=== PATIENT | male | born 1995 | race Caucasian/White ===

== ENCOUNTER 2017-09-10 20:48 | Emergency (ER) | payer SELFPAY ==
[2017-09-10 20:56] VITALS: BMI 29.0
[2017-09-10 22:58] LABS: BASOPHILS % (AUTO) 0.5 % (0.2-1.0); EOSINOPHILS # (AUTO) 0.1 x10^3/uL (0.0-0.2); EOSINOPHILS % (AUTO) 1.3 % (0.9-2.9); HEMATOCRIT 39.1 % (42.0-54.0); HEMOGLOBIN 13.4 g/dL (13.5-18.0); LYMPHOCYTES # (AUTO) 2.2 X10^3/uL (1.3-2.9); LYMPHOCYTES % (AUTO) 32.8 % (21.0-51.0); MEAN CORPUSCULAR HEMOGLOBIN 30.1 pg (27.0-34.0); MEAN CORPUSCULAR HGB CONC 34.3 g/dL (33.0-35.0); MEAN CORPUSCULAR VOLUME 87.9 fL (80.0-100.0); MEAN PLATELET VOLUME 10.5 fL (7.4-11.0); MONOCYTES # (AUTO) 0.4 x10^3/uL (0.3-0.8); MONOCYTES % (AUTO) 5.9 % (0.0-13.0); NEUTROPHILS # (AUTO) 3.9 x10^3/uL (2.2-4.8); NEUTROPHILS % (AUTO) 59.5 % (42.0-75.0); PLATELET COUNT 153 X10^3/uL (150.0-450.0); RED BLOOD COUNT 4.45 X10^6/uL (4.7-6.0); RED CELL DISTRIBUTION WIDTH 13.4 % (11.6-16.5); WHITE BLOOD COUNT 6.6 X10^3/uL (3.6-10.0)
[2017-09-10 23:13] LABS: BLOOD UREA NITROGEN 9 mg/dL (7-18); CALCIUM 8.6 mg/dL (8.5-10.1); CARBON DIOXIDE 30.9 mmol/L (21-32); CHLORIDE 105 mmol/L (98-107); CREATININE 0.86 mg/dL (0.70-1.30); SODIUM 143 mmol/L (136-145); TROPONIN I < 0.02 ng/mL (0-1.5); eGFR BLACK RACES > 60 (>60); eGFR NON BLACK RACES > 60 (>60)
[2017-09-10 23:18] LABS: ALANINE AMINOTRANSFERASE 26 Units/L (12-78); ALBUMIN 4.1 g/dL (3.4-5.0); ALKALINE PHOSPHATASE 81 Units/L (46-116); ASPARTATE AMINO TRANSFERASE 18 Units/L (15-37); CKMB % 0.7 % (<4); CREATINE KINASE 142 Units/L (39-308); CREATINE KINASE MB < 1.0 ng/mL (0-4.0); TOTAL PROTEIN 7.7 g/dL (6.4-8.2)
--- NOTE | 2017-09-10 23:46 | DR.GENAD ---
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 There is no cooling vents other than what air is circulating. He denies any history of heart disease; no history of trauma or lung disease. Chief Complaint:: PASSING OUT - Source History Provided: Patient - Mode of Arrival Mode of Arrival: Ambulatory - Timing Onset of Chief Complaint: 09/06/17 PMH - PMH Past Medical History: No Past Medical History: Anxiety Past Surgical History: No Surgical History: Tonsillectomy - Family History History of Family Medical Conditions: Yes Family Medical History: Diabetes Mellitus, [place], Coronary Artery Disease, Hypertension - Social History Does patient currently use any type of tobacco product: Yes Have you used tobacco products in the last 12 months: Yes Type of Tobacco Use: Cigarettes Does any household member use tobacco: No Alcohol Use: None Do you use any recreational Drugs:: No Lives With: Family Lives Where: Home - infectious screening In the last 2 months have you had wt loss of >10#?: NO Have you had fever, night sweats or hemotysis?: No Have you traveled outside the country in the last 6 months?: No Isolation: Standard ROS - Review of Systems Eyes: No Symptoms Reported ENTM: No Symptoms Reported Respiratoy: No Symptoms Reported Cardiovascular: No Symptoms Reported Gastrointestinal/Abdominal: No Symptoms Reported Genitourinary: No Symptoms Reported Neurological: No Symptoms Reported Musculoskeletal: No Symptoms Reported Integumentary: No Symptoms Reported Hematologic/Lymphatic: No Symptoms Reported Endocrine: No Symptoms Reported Psychiatric: No Symptoms Reported All Other Systems: Reviewed and Negative PE - Vital Signs Vitals: Temperature 98.4 F Pulse Rate 103 Respiratory Rate 16 Blood Pressure 142/68 O2 Sat by Pulse Oximetry 100 - General Limitations: No Limitations General Appearance: Alert, In No Apparent Distress - Head Head Exam: Normal Inspection, Atraumatic - Eyes Eye exam: Normal Appearance, PERRL, EOMI - ENT ENT Exam: Normal Exam, Normal Oropharynx External Ear Exam: Normal External Inspection TM/Canal Exam: Bilateral Normal Nose Exam: Normal Nose Exam Mouth Exam: Normal Inspection Throat Exam: Normal Inspection - Neck Neck Exam: Normal Inspection, Full ROM - Chest Chest Inspection: Normal Inspection, Symmetric Chest Wall Rise - Respiratory Respiratory Exam: Normal Lung Sounds Bilat Respiratory Exam: Bilateral Clear to Auscultation - Cardiovascular Cardiovascular Exam: Regular Rate, Normal Rhythm - Abdominal Exam Abdominal Exam: Normal Inspection, Normal Bowel Sounds Abdominal Tenderness: negative: RUQ, RLQ, LUQ, LLQ, Epigastrium, Suprapubic, Diffuse, Mild, Moderate, Severe, Other - Extremities Extremities Exam: Normal Inspection, Full ROM - Back Back Exam: Normal Inspection, Full ROM - Neurologic Neurological Exam: Alert, Oriented X3, CN II-XII Intact - Psychiatric Psychiatric Exam: Normal Affect, Normal Mood - Skin Skin Exam: Warm, Dry, Intact Course - Reevaluation 1st: Improved ROR - Labs Reviewed Result Diagrams: 09/10/17 22:48 09/10/17 22:48 Laboratory: WBC 6.6 X10^3/uL (3.6-10.0) 09/10/17 22:48 RBC 4.45 X10^6/uL (4.7-6.0) L 09/10/17 22:48 Hgb 13.4 g/dL (13.5-18.0) L 09/10/17 22:48 Hct 39.1 % (42.0-54.0) L 09/10/17 22:48 MCV 87.9 fL (80.0-100.0) 09/10/17 22:48 MCH 30.1 pg (27.0-34.0) 09/10/17 22:48 MCHC 34.3 g/dL (33.0-35.0) 09/10/17 22:48 RDW 13.4 % (11.6-16.5) 09/10/17 22:48 Plt Count 153 X10^3/uL (150.0-450.0) 09/10/17 22:48 MPV 10.5 fL (7.4-11.0) 09/10/17 22:48 Neut % (Auto) 59.5 % (42.0-75.0) 09/10/17 22:48 Lymph % (Auto) 32.8 % (21.0-51.0) 09/10/17 22:48 [place] % (Auto) 5.9 % (0.0-13.0) 09/10/17 22:48 Eos % (Auto) 1.3 % (0.9-2.9) 09/10/17 22:48 Baso % (Auto) 0.5 % (0.2-1.0) 09/10/17 22:48 Neut # (Auto) 3.9 x10^3/uL (2.2-4.8) 09/10/17 22:48 Lymph # (Auto) 2.2 X10^3/uL (1.3-2.9) 09/10/17 22:48 [place] # (Auto) 0.4 x10^3/uL (0.3-0.8) 09/10/17 22:48 Eos # (Auto) 0.1 x10^3/uL (0.0-0.2) 09/10/17 22:48 Baso # (Auto) 0.0 X10^3/uL (0.0-0.1) 09/10/17 22:48 Absolute Nucleated RBC 0.0 /100WBC 09/10/17 22:48 Sodium 143 mmol/L (136-145) 09/10/17 22:48 Corrected Sodium TNP 09/10/17 22:48 Potassium 3.8 mmol/L (3.5-5.1) 09/10/17 22:48 Chloride 105 mmol/L (98-107) 09/10/17 22:48 Carbon Dioxide 30.9 mmol/L (21-32) 09/10/17 22:48 BUN 9 mg/dL (7-18) 09/10/17 22:48 Creatinine 0.86 mg/dL (0.70-1.30) 09/10/17 22:48 Est GFR (MDRD) Af Amer > 60 (>60) 09/10/17 22:48 Est GFR (MDRD) Non-Af > 60 (>60) 09/10/17 22:48 Glucose 95 mg/dL (65-99) 09/10/17 22:48 Calcium 8.6 mg/dL (8.5-10.1) 09/10/17 22:48 Corrected Calcium TNP 09/10/17 22:48 Total Bilirubin 0.40 mg/dL (0.2-1.0) 09/10/17 22:48 AST 18 Units/L (15-37) 09/10/17 22:48 ALT 26 Units/L (12-78) 09/10/17 22:48 Alkaline Phosphatase 81 Units/L (46-116) 09/10/17 22:48 Creatine Kinase 142 Units/L (39-308) 09/10/17 22:48 CK-MB (CK-2) < 1.0 ng/mL (0-4.0) 09/10/17 22:48 CK/CKMB % Calc 0.7 % (<4) 09/10/17 22:48 Troponin I < 0.02 ng/mL (0-1.5) 09/10/17 22:48 Total Protein 7.7 g/dL (6.4-8.2) 09/10/17 22:48 Albumin 4.1 g/dL (3.4-5.0) 09/10/17 22:48 Globulin 3.6 g/dL (2.5-4.5) 09/10/17 22:48 Albumin/Globulin Ratio 1.1 Ratio (1.1-2.1) 09/10/17 22:48 - XRAY XRAY Interpreted by: Radiologist (Chest: No acute cardiopulmonary disease) - Diagnosis Discharge Problem: Heat exhaustion Qualifiers: Encounter type: initial encounter Qualified Code(s): T67.5XXA - Heat exhaustion , unspecified, initial encounter - Discharge Plan Condition: Stable - Follow ups/Referrals Follow ups/Referrals: NFD,None [Primary Care Provider] - 3 days - Instructions
--- NOTE | 2017-09-11 00:25 | RAD ---
Chest AP portable Indication: Near syncope. Multiple falls Findings: There is hyperinflation and prominent heart size without pneumothorax, effusion or consolid ation. Impression: No acute chest process. Reported By:
[2017-09-11 01:27] VITALS: BP 133/71
== END 2017-09-11 01:10 | disposition home or self-care (01) ==
LOC: ER 21:01
DX: T67.5XXA Heat exhaustion, unspecified, initial encounter (principal)
CPT/HCPCS: 36415; 71045; 80053; 82550; 82553; 84484; 85025; 93005; 93010; 99283